=== PATIENT | male | born 1970 | race African-American/Black ===

== ENCOUNTER 2019-10-24 | Emergency (ER) | payer OTHER ==
[~2019-10-24] MED LIST: AMLODIPINE10 MG OR; ATENOLOL100 MG OR; ATENOLOL50 MG OR; DOXAZOSIN4 M1 OR; GLIPIZIDE10 MG PO; HYDROCHLOROT25 MG OR; LISINOPRIL20 MG PO; METFORMIN850 MG PO; NOVOLIN R U-1001 ML SC; REMERON45 MG OR; RISPERDAL2 MG OR; VERAPAMIL240 M1 PO; ZANTAC150 MG OR
[2019-10-24] MEDS ORDERED: APRESOLINE50 MG PO (00:44)
[2019-10-24] MEDS ORDERED: NORVASC5 M1 PO (00:45)
[2019-10-24] MEDS ORDERED: LANTUS100 UNIT/M SC (00:48)
[2019-10-24 00:54] LABS: HEMATOCRIT 39.1 % (39.0-50.0); HEMOGLOBIN 12.9 g/dl (14.0-18.0); IMMATURE GRANULOCYTES 0.3 % (0.0-5.0); MEAN CELL VOLUME 89.5 fL CALC (80.0-100.0); MEAN CORPUSCULAR HGB 29.5 pG CALC (26.0-32.0); NEUT# 10.99 thou/uL (1.82-7.42); RED BLOOD COUNT 4.37 mill/uL (4.70-6.10); RED CELL DISTRI WIDTH 12.4 % (11.5-15.5)
[2019-10-24] MEDS ORDERED: OMEPRAZOLE20 M2 PO (00:54)
[2019-10-24] MEDS ORDERED: TOPROL XL PO (00:55)
[2019-10-24] MEDS ORDERED: FLUOXETINE20 MG PO (00:56)
[2019-10-24] MEDS ORDERED: OMEGA 31000 MG PO (00:56)
[2019-10-24] MEDS ORDERED: PRAZOSIN HCL5 MG PO (00:57)
[2019-10-24] MEDS ORDERED: DIPHENHYDRAM50 M2 PO (00:58)
[2019-10-24] MEDS ORDERED: VENTOLIN HFA IN (01:00)
[2019-10-24] MEDS ORDERED: DIABETIC T100 MG/5 M PO (01:01)
[2019-10-24] MEDS ORDERED: BACTRIM DS1 TAB PO (01:02)
[2019-10-24] MEDS ORDERED: [UNRECOGNIZED DRUG - REMARK] MT (01:03)
[2019-10-24] MEDS ORDERED: PROVENTIL0.083 % IN (01:04)
[2019-10-24 01:12] LABS: PROTHROMBIN TIME 10.7 SECONDS (9.0-12.5)
[2019-10-24 01:13] LABS: ALBUMIN 4.4 g/dL (3.2-5.0); ALKALINE PHOSPHATASE 102 u/l (38-126); ANION GAP 15 (6-22 (CALC)); BILIRUBIN, TOTAL 0.2 mg/dL (0.0-1.4); BUN 14 mg/dL (9-20); BUN/CREATININE RATIO 15 (12-20 (CALC)); CARBON DIOXIDE 26 mmol/l (22-30); CHLORIDE 102 mmol/l (95-108); CREATININE 0.9 mg/dL (0.7-1.3); GFR > 60 ML/MIN (>=60 (CALC)); GFR FOR AFR.AMER. > 60 ML/MIN (>=60 (CALC)); SGOT/AST 22 u/l (17-59); SODIUM 138 mmol/l (137-146); TOTAL PROTEIN 8.2 g/dL (6.3-8.2)
[2019-10-24 01:16] LABS: POTASSIUM 5.2 mmol/l (3.5-5.1)
[2019-10-24 01:25] LABS: MYOGLOBIN 53 ng/mL (0 - 121)
== END 2019-10-24 02:26 | DRG 202 ==
PROVIDERS: Emergency Medicine
PROC: 5A09357 Assistance with Respiratory Ventilation, Less than 24 Consecutive Hours, Continuous Positive Airway Pressure (ICD-10-PCS; principal; 2019-10-24)
DX: J98.01 Acute bronchospasm (principal); E87.2 Acidosis; I10 Essential (primary) hypertension; E11.9 Type 2 diabetes mellitus without complications; Z79.4 Long term (current) use of insulin
CPT/HCPCS: J3475

== ENCOUNTER 2020-08-20 09:07 | Inpatient (IN) | payer OTHER ==
[~2020-08-20] VITALS: Ht 175.3 cm; Wt 80.0 kg
[~2020-08-20 09:07] MED LIST changes: +APRESOLINE50 MG PO; +BACTRIM DS1 TAB PO; +DIABETIC T100 MG/5 M PO; +DIPHENHYDRAM50 M2 PO; +FLUOXETINE20 MG PO; +LANTUS100 UNIT/M SC; +NORVASC5 M1 PO; +OMEGA 31000 MG PO; +OMEPRAZOLE20 M2 PO; +PRAZOSIN HCL5 MG PO; +PROVENTIL0.083 % IN; +TOPROL XL PO; +VENTOLIN HFA IN; +[UNRECOGNIZED DRUG - REMARK] MT
[2020-08-20 09:41] LABS: IMMATURE GRANULOCYTES 0.2 % (0.0-5.0); MEAN CORPUSCULAR HGB 29.2 pG CALC (26.0-32.0); MEAN CORPUSCULAR HGB CONC 33.9 g/dL CAL (32.0-36.0); NEUT# 3.02 thou/uL (1.82-7.42); RED BLOOD COUNT 5.13 mill/uL (4.70-6.10); RED CELL DISTRI WIDTH 12.4 % (11.5-15.5)
[2020-08-20 09:43] LABS: HEMATOCRIT 44.3 % (39.0-50.0); MEAN CELL VOLUME 86.4 fL CALC (80.0-100.0)
[2020-08-20 09:56] LABS: ALKALINE PHOSPHATASE 134 u/l (38-126); BILIRUBIN, TOTAL 0.4 mg/dL (0.0-1.4); CHLORIDE 103 mmol/l (95-108); LIPASE 472 u/l (23-300); MAGNESIUM 3.3 mg/dL (1.6-2.3); SGOT/AST 18 u/l (17-59); TOTAL PROTEIN 7.8 g/dL (6.3-8.2)
[2020-08-20 10:00] LABS: ALBUMIN 4.5 g/dL (3.2-5.0); ANION GAP 31 (6-22 (CALC)); BUN 47 mg/dL (9-20); BUN/CREATININE RATIO 24 (12-20 (CALC)); GFR 36 ML/MIN (>=60 (CALC)); GFR FOR AFR.AMER. 43 ML/MIN (>=60 (CALC)); POTASSIUM 6.1 mmol/l (3.5-5.1); SODIUM 133 mmol/l (137-146)
[2020-08-20 10:01] LABS: CARBON DIOXIDE < 5 mmol/l (22-30)
[2020-08-20] MEDS ORDERED: ADVAIR DISK1 IN (10:21)
[2020-08-20] MEDS ORDERED: LORATADINE10 M1 PO (10:22)
[2020-08-20] MEDS ORDERED: SINGULAIR10 MG PO (10:22)
[2020-08-20] MEDS ORDERED: OMEPRAZOLE20 MG PO (10:22)
[2020-08-20] MEDS ORDERED: [UNRECOGNIZED DRUG - OTHER] IM (10:23)
[2020-08-20] MEDS ORDERED: ATENOLOL50 MG PO (10:23)
[2020-08-20] MEDS ORDERED: GLIPIZIDE5 MG PO (10:23)
[2020-08-20] MEDS ORDERED: ALBUTEROL SUL0.083 % IN (10:24)
[2020-08-20] MEDS ORDERED: FLUOXETINE20 MG PO (10:24)
[2020-08-20] MEDS ORDERED: METFORMIN HCL500 M1 PO (10:24)
[2020-08-20] MEDS ORDERED: VENTOLIN HFA IN (10:25)
[2020-08-20] MEDS ORDERED: IPRATROPIUM BR0.02 % IN (10:25)
[2020-08-20] MEDS ORDERED: EQ PAIN RELIEV325 MG PO (10:26)
[2020-08-20] MEDS ORDERED: ROBAFEN MU200 MG/10 PO (10:26)
[2020-08-20 11:15] LABS: URINE BLOOD DIPSTICK MODERATE (NEGATIVE); URINE COLOR YELLOW; URINE GLUCOSE - DIPSTICK >=1000 mg/dL (NEGATIVE); URINE KETONE >=80 mg/dL (NEGATIVE); URINE LEUK ESTERASE NEGATIVE (NEGATIVE); URINE NITRITE - DIPSTICK NEGATIVE (Negative); URINE PH 5.5 (4.5-8.0); URINE PROTEIN - DIPSTICK TRACE mg/dL (NEG-TRACE); URINE SPECIFIC GRAVITY 1.025; URINE UROBILINOGEN - DIPSTICK 0.2 E.U./dL (0.2)
[2020-08-20 11:22] LABS: URINE BILIRUBIN - DIPSTICK NEGATIVE (NEGATIVE); URINE RBC 0-2 RBC/hpf (0-5); URINE WBC 0-2 WBC/hpf (0-5)
[2020-08-20 13:43] LABS: CREATININE 1.6 mg/dL (0.7-1.3)
[2020-08-20 13:45] LABS: POTASSIUM 5.5 mmol/l (3.5-5.1)
[2020-08-20 17:26] LABS: BUN 36 mg/dL (9-20); BUN/CREATININE RATIO 28 (12-20 (CALC)); CHLORIDE 112 mmol/l (95-108); CREATININE 1.3 mg/dL (0.7-1.3); GFR 59 ML/MIN (>=60 (CALC)); GFR FOR AFR.AMER. > 60 ML/MIN (>=60 (CALC)); POTASSIUM 5.1 mmol/l (3.5-5.1); SODIUM 140 mmol/l (137-146)
[2020-08-20 17:35] LABS: ANION GAP 22 (6-22 (CALC)); CARBON DIOXIDE 11 mmol/l (22-30)
[2020-08-20 19:10] VITALS: BP 159/81
[2020-08-20 21:10] VITALS: BP 178/85
[2020-08-20 21:54] LABS: ANION GAP 22 (6-22 (CALC)); BUN 30 mg/dL (9-20); BUN/CREATININE RATIO 27 (12-20 (CALC)); CARBON DIOXIDE 11 mmol/l (22-30); CHLORIDE 114 mmol/l (95-108); CREATININE 1.1 mg/dL (0.7-1.3); GFR > 60 ML/MIN (>=60 (CALC)); GFR FOR AFR.AMER. > 60 ML/MIN (>=60 (CALC)); POTASSIUM 4.9 mmol/l (3.5-5.1); SODIUM 142 mmol/l (137-146)
[2020-08-20 22:10] VITALS: BP 168/87
[2020-08-20 23:10] VITALS: BP 158/86
[2020-08-21] VITALS (8 sets, daily range): BP systolic 140–163; BP diastolic 75–87
[2020-08-21 06:19] LABS: HEMOGLOBIN 14.3 g/dl (14.0-18.0); IMMATURE GRANULOCYTES 0.2 % (0.0-5.0); MEAN CELL VOLUME 84.5 fL CALC (80.0-100.0); MEAN CORPUSCULAR HGB 29.5 pG CALC (26.0-32.0); MEAN CORPUSCULAR HGB CONC 34.9 g/dL CAL (32.0-36.0); NEUT# 2.86 thou/uL (1.82-7.42); RED BLOOD COUNT 4.85 mill/uL (4.70-6.10); RED CELL DISTRI WIDTH 12.6 % (11.5-15.5)
[2020-08-21 06:50] LABS: ALBUMIN 3.9 g/dL (3.2-5.0); ALKALINE PHOSPHATASE 103 u/l (38-126); ANION GAP 18 (6-22 (CALC)); BILIRUBIN, TOTAL 0.4 mg/dL (0.0-1.4); BUN 22 mg/dL (9-20); BUN/CREATININE RATIO 25 (12-20 (CALC)); C-REACTIVE PROTEIN 3.1 mg/dL (0-0.9); CHLORIDE 113 mmol/l (95-108); CREATININE 0.9 mg/dL (0.7-1.3); GFR > 60 ML/MIN (>=60 (CALC)); GFR FOR AFR.AMER. > 60 ML/MIN (>=60 (CALC)); SGOT/AST 20 u/l (17-59); SODIUM 143 mmol/l (137-146); TOTAL PROTEIN 6.8 g/dL (6.3-8.2)
[2020-08-21 06:51] LABS: CARBON DIOXIDE 16 mmol/l (22-30)
[2020-08-22] VITALS: BP 157/94
[2020-08-22 04:00] VITALS: BP 140/83
[2020-08-22 08:15] VITALS: BP 157/81
[2020-08-22 09:48] LABS: ALBUMIN 3.5 g/dL (3.2-5.0); ALKALINE PHOSPHATASE 91 u/l (38-126); BUN 13 mg/dL (9-20); BUN/CREATININE RATIO 18 (12-20 (CALC)); CHLORIDE 102 mmol/l (95-108); CREATININE 0.7 mg/dL (0.7-1.3); GFR > 60 ML/MIN (>=60 (CALC)); GFR FOR AFR.AMER. > 60 ML/MIN (>=60 (CALC)); POTASSIUM 3.4 mmol/l (3.5-5.1); SGOT/AST 29 u/l (17-59); TOTAL PROTEIN 6.3 g/dL (6.3-8.2)
[2020-08-22 09:54] LABS: ANION GAP 11 (6-22 (CALC)); BILIRUBIN, TOTAL 0.6 mg/dL (0.0-1.4); CARBON DIOXIDE 23 mmol/l (22-30); SODIUM 133 mmol/l (137-146)
[2020-08-22 12:00] VITALS: BP 114/68
[2020-08-22 16:40] VITALS: BP 129/80
[2020-08-22 20:00] VITALS: BP 124/87
[2020-08-23] VITALS: BP 135/79
[2020-08-23 04:00] VITALS: BP 120/82
[2020-08-23 07:36] VITALS: BP 112/78
[2020-08-23 10:07] VITALS: BP 127/54
[2020-08-23 10:30] VITALS: BP 138/78
[2020-08-23] MEDS ORDERED: ZPAK PO (13:31)
[2020-08-23] MEDS ORDERED: LEVEMIR100 UNIT/M SC (13:31)
== END 2020-08-23 16:06 | disposition designated cancer center or children's hospital (05) | DRG 637 ==
LOC: ED 09:07 → ED-I 10:00 → ED 10:35 → MS2 10:36 → ED-I 10:36 → MS2 08-21 11:16
PROVIDERS: Family Medicine; ADMIT Internal Medicine; ATTEND Internal Medicine
PROC: 02HV33Z Insertion of Infusion Device into Superior Vena Cava, Percutaneous Approach (ICD-10-PCS; principal; 2020-08-20)
DX: E11.10 Type 2 diabetes mellitus with ketoacidosis without coma (principal); U07.1 COVID-19; J12.89 Other viral pneumonia; N17.9 Acute kidney failure, unspecified; E87.1 Hypo-osmolality and hyponatremia; T82.524A Displacement of infusion catheter, initial encounter; E87.5 Hyperkalemia; I51.7 Cardiomegaly; F32.9 Major depressive disorder, single episode, unspecified; F65.4 Pedophilia; Y83.8 Other surgical procedures as the cause of abnormal reaction of the patient, or of later complication, without mention of misadventure at the time of the procedure; Y92.230 Patient room in hospital as the place of occurrence of the external cause; Z79.84 Long term (current) use of oral hypoglycemic drugs; Z79.899 Other long term (current) drug therapy
CPT/HCPCS: J1650